=== PATIENT | female | born 1985 | race American Indian/Alaskan Native ===

== ENCOUNTER 2017-12-29 18:44 | Emergency (ER) | payer OTHER, MEDICARE ==
[2017-12-29 19:03] VITALS: BP 113/75
[2017-12-29 20:16] LABS: HCG Qualitative,Urine Negative (Negative)
[2017-12-30] MEDS ORDERED: MOTRIN PO ONE (00:25)
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
== END 2017-12-30 01:20 | disposition home or self-care (01) ==
LOC: ED 18:44
DX: S16.1XXA Strain of muscle, fascia and tendon at neck level, initial encounter (principal); S39.012A Strain of muscle, fascia and tendon of lower back, initial encounter; V49.49XA Driver injured in collision with other motor vehicles in traffic accident, initial encounter; G44.319 Acute post-traumatic headache, not intractable; J45.909 Unspecified asthma, uncomplicated; F17.200 Nicotine dependence, unspecified, uncomplicated; Y93.89 Activity, other specified; Y92.89 Other specified places as the place of occurrence of the external cause; Y99.8 Other external cause status
CPT/HCPCS: 81025; 99283